=== PATIENT | male | born 1950 | race Caucasian/White ===

== ENCOUNTER → 2016-12-13 | Emergency (ER) | payer OTHER, BC ==
[~2016-12-13] MED LIST: hydrALAZINE HCL 20 MG/ML VIAL IVPUSH ONE; hydrALAZINE HCL 20 MG/ML VIAL ONE
[2016-12-13 03:32] VITALS: BMI 30.5
--- NOTE | 2016-12-13 03:41 | PDOC ---
History of Present Illness - General History Source: Patient Exam Limitations: No Limitations - History of Present Illness Initial Comments: 12/13/16 03:53 The patient is a 66 year old male with no significant past medical history who presents to the ED for elevated blood pressure prior to arrival. Patient reports he was in his usual state of health prior to going to bed when he woke up around 1am with left arm pain and numbness. States he decided to checked his blood pressure when he noted it to be elevated. During triage, patients blood pressure is noted to be 187/100. States his blood pressure was similar, but does not remember the bottom number. Denies lightheadedness, diaphoresis, SOB, chest pain, jaw pain, nausea, or vomiting. Denies recent travels or sick contacts. Patient reports he still has numbness to the left arm and decided to take 2 aleve about 30 minutes prior to arrival. Denies history of hypertension. The patient denies fever, chills, cough, abdominal pain, and diarrhea. Allergies: NKDA Social History: No alcohol, tobacco, or drug use reported. Past Surgical History: right ankle fx s/p repair PCP: Dr. Shun Joya <Carleen Mcneal - Last Filed: 12/13/16 03:55> <Julisa Foote - Last Filed: 12/13/16 10:01> - General History Source: Patient <Keith Peterson - Last Filed: 12/13/16 23:47> - General Chief Complaint: Blood Pressure Problem Stated Complaint: LEFT ARM PAIN/BLOOD PRESSURE PROBLEM Time Seen by Provider: 12/13/16 03:40 Past History <Carleen Mcneal - Last Filed: 12/13/16 03:55> <Julisa Foote - Last Filed: 12/13/16 10:01> - Past Medical History Anemia: No Asthma: No Cancer: No Cardiac Disorders: No CVA: No COPD: No CHF: No Dementia: No Diabetes: No GI Disorders: Yes (COLON ADENOMA,DIVERTICULOSIS,SIGMOID ANGIODYSLASIA) Disorders: No HTN: No Hypercholesterolemia: Yes (DIET CONTROLLED) Liver Disease: Yes (H/O GILBERT SYNDROME) Seizures: No Thyroid Disease: No - Surgical History Abdominal Surgery: No Appendectomy: No Cardiac Surgery: No Cholecystectomy: No Lung Surgery: No Neurologic Surgery: No Orthopedic Surgery: Yes (FX RIGHT ANKLE, PINS AND SCREWS IN PLACE) - Psycho/Social/Smoking Cessation Hx Suicidal Ideation: No Smoking History: Unknown if ever smoked Have you smoked in the past 12 months: No Information on smoking cessation initiated: No Hx Alcohol Use: No Drug/Substance Use Hx: No Substance Use Type: None Hx Substance Use Treatment: No <AndraegirmaKeith - Last Filed: 12/13/16 23:47> - Past Medical History Allergies/Adverse Reactions: Allergies Allergy/AdvReac Type Severity Reaction Status Date / Time No Known Allergies Allergy Verified 12/13/16 07:10 Home Medications: Ambulatory Orders NK [No Known Home Medication] 12/13/16 Review of Systems - Review of Systems Able to Perform ROS?: Yes Comments:: 12/13/16 03:53 CONSTITUTIONAL: Absent: fever, no chills, no fatigue EYES: Absent: visual changes ENT: Absent: ear pain, no sore throat CARDIOVASCULAR: +elevated blood pressure Absent: chest pain, no palpitations RESPIRATORY: Absent: cough, no SOB GI: Absent: abdominal pain, no nausea, no vomiting, no constipation, no diarrhea GENITOURINARY: Absent: dysuria, no frequency, no hematuria MUSCULOSKELETAL: +left arm pain Absent: back pain, no arthralgia SKIN: Absent: rash NEURO: +left arm numbness Absent: headache <Carleen Mcneal - Last Filed: 12/13/16 03:55> *Physical Exam - Vital Signs Last Vital Signs Temp Pulse Resp BP Pulse Ox 97.9 F 88 14 187/100 100 12/13/16 03:31 12/13/16 03:31 12/13/16 03:31 12/13/16 03:31 12/13/16 03:31 - Physical Exam Comments: 12/13/16 03:53 GENERAL: Well-appearing, well-nourished. No apparent distress. HEENT: Normocephalic, atraumatic. PERRL, EOM intact. CARDIOVASCULAR: Normal S1, S2. Regular rate and rhythm. PULMONARY: Clear to auscultation bilaterally. ABDOMEN: Soft, non-distended, non-tender. EXTREMITIES: Normal ROM in all four extremities. No gross deformities. SKIN: Warm, dry. No rash NEUROLOGICAL: No focal neurological deficits. <Carleen Mcneal - Last Filed: 12/13/16 03:55> - Vital Signs Last Vital Signs Temp Pulse Resp BP Pulse Ox 97.5 F L 96 H 17 141/88 98 12/13/16 08:20 12/13/16 08:20 12/13/16 08:20 12/13/16 08:20 12/13/16 08:20 <Julisa Foote - Last Filed: 12/13/16 10:01> - Vital Signs Last Vital Signs Temp Pulse Resp BP Pulse Ox 97.9 F 88 14 187/100 100 12/13/16 03:31 12/13/16 03:31 12/13/16 03:31 12/13/16 03:31 12/13/16 03:31 <Keith Peterson - Last Filed: 12/13/16 23:47> Heart Score/ECG Review - ECG Impressions Comment:: 12/13/16 03:55 NSR @89bpm <FredisCarleen - Last Filed: 12/13/16 03:55> ED Treatment Course - LABORATORY CBC & Chemistry Diagram: 12/13/16 04:21 12/13/16 04:21 - ADDITIONAL ORDERS Additional order review: Laboratory Results 12/13/16 12/13/16 12/13/16 08:19 04:21 04:21 INR Sodium 139 Potassium 3.9 Chloride 105 Carbon Dioxide 26 Anion Gap 8 BUN 16 Creatinine 0.8 Creat Clearance w eGFR > 60 Random Glucose 108 H Calcium 9.7 Total Bilirubin 1.2 H AST 29 ALT 44 Alkaline Phosphatase 44 L Creatine Kinase 199 207 Creatine Kinase Index 1.7 CK-MB (CK-2) 3.548 CK-MB (CK-2) Rel Index Cancelled Troponin I < 0.02 < 0.02 Total Protein 6.9 Albumin 3.9 12/13/16 04:21 INR 1.08 Sodium Potassium Chloride Carbon Dioxide Anion Gap BUN Creatinine Creat Clearance w eGFR Random Glucose Calcium Total Bilirubin AST ALT Alkaline Phosphatase Creatine Kinase Creatine Kinase Index CK-MB (CK-2) CK-MB (CK-2) Rel Index Troponin I Total Protein Albumin 12/13/16 04:21 RBC 4.52 MCV 89.2 MCHC 34.0 RDW 13.2 MPV 8.4 Neutrophils % 64.0 Lymphocytes % 24.0 Monocytes % 9.0 Eosinophils % 2.1 Basophils % 0.9 - Medications Given in the ED: ED Medications Discontinued Medications Generic Name Dose Route Start Last Admin Trade Name Norma PRBria Reason Stop Dose Admin Hydralazine HCl 10 mg 12/13/16 03:41 12/13/16 04:30 Apresoline Injection - IVPUSH 12/13/16 03:42 10 mg ONCE ONE Administration Hydralazine HCl 10 mg 12/13/16 06:12 12/13/16 07:00 Apresoline Injection - IVPUSH 12/13/16 06:13 10 mg ONCE ONE Administration <Julisa Foote - Last Filed: 12/13/16 10:01> - LABORATORY CBC & Chemistry Diagram: 12/13/16 04:21 12/13/16 04:21 <Keith Peterson - Last Filed: 12/13/16 23:47> Medical Decision Making - Medical Decision Making 12/13/16 10:01 Pt endorsed to me by Dr. Peterson at 7am shift change. Pt presented with L arm pain, normal EKG. Two sets of CE were negative. Stable for DC home with outpatient f/u. <Julisa Foote - Last Filed: 12/13/16 10:01> - Medical Decision Making 12/13/16 23:47 Dr. Peterson: The scribe's documentation has been prepared under my direction and personally reviewed by me in its entirery. I confirm that the note above accurately reflects all work, treatment, procedures, and medical decision making performed by me. <Keith Peterson - Last Filed: 12/13/16 23:47> *DC/Admit/Observation/Transfer - Attestations Scribe Attestion: 12/13/16 03:53 Documentation prepared by Carleen Mcneal, acting as medical assembler for Keith Peterson MD/DO. <Carleen Mcneal - Last Filed: 12/13/16 03:55> - Discharge Dispostion Admit: No <Julisa Foote - Last Filed: 12/13/16 10:01> - Discharge Dispostion Admit: No <Keith Peterson - Last Filed: 07/06/17 23:47> Diagnosis at time of Disposition: Arm pain, left - Discharge Dispostion Disposition: HOME Condition at time of disposition: Stable - Referrals Referrals: Shun Joya MD [Primary Care Provider] - - Patient Instructions Printed Discharge Instructions: DI for Arm Pain
[2016-12-13 04:41] LABS: BASOPHIL 0.9 % (0-2.0); EOSINOPHIL 2.1 % (0-4.5); MCH 30.3 pg (25.7-33.7); MEAN CELL VOLUME 89.2 fl (80-96); MEAN PLT VOLUME 8.4 fl (7.5-11.1); PLATELET COUNT 203 K/MM3 (134-434); RDW 13.2 % (11.9-15.9)
[2016-12-13 04:56] LABS: INR 1.08 (0.82-1.09); PROTHROMBIN TIME (PATIENT) 11.9 SEC (9.98-11.88)
[2016-12-13 05:04] LABS: ALBUMIN 3.9 g/dl (3.4-5.0); ANION GAP 8 (8-16); BILIRUBIN,TOTAL 1.2 mg/dL (0.2-1.0); CALCIUM 9.7 mg/dL (8.5-10.1); CO2 26 mmol/L (21-32); CREATININE 0.8 mg/dL (0.7-1.3); GLUCOSE,RANDOM 108 mg/dL (74-106); SGOT/AST 29 U/L (15-37); SGPT/ALT 44 U/L (12-78); TOT PROT 6.9 g/dl (6.4-8.2)
[2016-12-13 05:06] LABS: ALK PHOS 44 U/L (45-117); TROPONIN I < 0.02 ng/ml (0.00-0.05)
[2016-12-13 08:21] VITALS: PULSE 96; TEMP 97.5
[2016-12-13 09:01] LABS: TROPONIN I < 0.02 ng/ml (0.00-0.05)
[2016-12-13 09:38] VITALS: BP 144/91
--- NOTE | 2016-12-13 11:19 | EKG ---
Test Reason : Blood Pressure : / mmHG Vent. Rate : 089 BPM Atrial Rate : 089 BPM P-R Int : 160 ms QRS Dur : 090 ms QT Int : 358 ms P-R-T Axes : 047 069 039 degrees QTc Int : 435 ms NORMAL SINUS RHYTHM NORMAL ECG WHEN COMPARED WITH ECG OF 23-JUN-2008 15:40, NO SIGNIFICANT CHANGE WAS FOUND Confirmed by MIGUELINA JAIME MD ([id number]) on 12/13/2016 11:19:10 AM Referred By: Confirmed By:MIGUELINA JAIME MD
== END | disposition home or self-care (01) ==
LOC: JER 03:08
PROC: 3E033GC Introduction of Other Therapeutic Substance into Peripheral Vein, Percutaneous Approach (ICD-10-PCS; principal; 2016-12-13)
DX: I10 Essential (primary) hypertension (principal)
CPT/HCPCS: 36415; 71010-TC; 80053; 82550; 82553; 84484; 85025; 85610; 93005; 93010; 99283-25

== ENCOUNTER 2021-07-14 04:32 | Day surgery (SDC) | payer OTHER, BC ==
[2021-07-11 14:30] VITALS: BMI 33.0
[2021-07-14] MEDS ORDERED: KETAMINE HCL 200 MG/20 ML VIAL ONE (07:20)
[2021-07-14 08:37] VITALS: TEMP 98
[2021-07-14 09:32] VITALS: BP 115/51; PULSE 63
== END 2021-07-14 09:36 | disposition home or self-care (01) ==
LOC: JASU-ENDO 04:32
PROVIDERS: ATTEND Internal Medicine Gastroenterology
PROC: 0DBL8ZX Excision of Transverse Colon, Via Natural or Artificial Opening Endoscopic, Diagnostic (ICD-10-PCS; 2021-07-14)
PROC: 0DBK8ZX Excision of Ascending Colon, Via Natural or Artificial Opening Endoscopic, Diagnostic (ICD-10-PCS; 2021-07-14)
PROC: 0DBM8ZX Excision of Descending Colon, Via Natural or Artificial Opening Endoscopic, Diagnostic (ICD-10-PCS; principal; 2021-07-14 08:00)
DX: Z12.11 Encounter for screening for malignant neoplasm of colon (principal); D12.2 Benign neoplasm of ascending colon; D12.4 Benign neoplasm of descending colon; D12.3 Benign neoplasm of transverse colon; K64.8 Other hemorrhoids; K57.30 Diverticulosis of large intestine without perforation or abscess without bleeding; E80.4 Gilbert syndrome; Z86.010 Personal history of colon polyps
CPT/HCPCS: 88305-TC